=== PATIENT | female | born 1985 ===

== ENCOUNTER 2017-03-16 11:21 | Emergency (ER) | payer OTHER ==
--- NOTE | 2017-03-16 12:16 | C.PDOC ---
History Of Present Illness 31 year old female, who is currently around 18 weeks , presents to the ED for evaluation of fever, cough, and generalized body aches which began 3 days ago. Patient took one 325mg tablet of Tylenol yesterday without significant relief. She reports sick contact with son, who is also a patient in the ED with similar symptoms. Patient denies diarrhea, rash, and headache. Time Seen by Provider: 03/16/17 11:58 Chief Complaint (Nursing): Flu-like Symptoms History Per: Patient History/Exam Limitations: no limitations Onset/Duration Of Symptoms: Days (3) Current Symptoms Are (Timing): Still Present Location Of Pain: Diffuse Myalgias Sick Contacts (Context): Family Member(s) (son ) Associated Symptoms: Fever, Cough Ear Symptoms: Bilateral: None Additional History Per: Patient Past Medical History Reviewed: Historical Data, Nursing Documentation, Vital Signs Vital Signs: Last Vital Signs Temp 100.5 F H 03/16/17 13:31 Pulse 95 H 03/16/17 13:31 Resp 18 03/16/17 13:31 BP 91/62 L 03/16/17 13:31 Pulse Ox 96 03/16/17 13:31 - Medical History PMH: No Chronic Diseases Surgical History: No Surg Hx Family History: States: Unknown Family Hx - Social History Hx Alcohol Use: No Hx Substance Use: No - Immunization History Hx Tetanus Toxoid Vaccination: No Hx Influenza Vaccination: No Hx Pneumococcal Vaccination: No Review Of Systems Constitutional: Positive for: Fever Eyes: Negative for: Redness ENT: Positive for: Nose Congestion Respiratory: Positive for: Cough Gastrointestinal: Negative for: Vomiting, Diarrhea Genitourinary: Negative for: Dysuria, Vaginal Bleeding Musculoskeletal: Positive for: Other (generalized body aches ) Skin: Negative for: Rash Neurological: Negative for: Headache Physical Exam - Physical Exam Appears: Non-toxic, No Acute Distress Skin: Normal Color, Warm, Dry Head: Atraumatic, Normacephalic Eye(s): bilateral: Normal Inspection, EOMI Ear(s): Bilateral: Normal Nose: Normal, No Discharge Oral Mucosa: Moist Throat: Normal, No Erythema, No Exudate Neck: Normal ROM, Supple Chest: Symmetrical, No Tenderness Cardiovascular: Rhythm Regular, No Murmur Respiratory: Normal Breath Sounds, No Rales, No Rhonchi, No Wheezing Gastrointestinal/Abdominal: Soft (gravid), No Tenderness Extremity: Bilateral: Atraumatic, Normal Color And Temperature, Normal ROM Neurological/Psych: Oriented x3, Normal Speech Gait: Steady ED Course And Treatment O2 Sat by Pulse Oximetry: 99 (on RA ) Pulse Ox Interpretation: Normal Medical Decision Making Medical Decision Making: Patient with fever, cough, congestion, and flu like symptoms. Son is also in the ED being evaluated for Flu. Patient found to have temperature of 102.9 in the ED. Tylenol PO administered. On re-eval patient fever is down. She has clear lungs and in no distress. No abdominal complaints. Patient advised since she is she can take Tylenol for fever and use Claritin or saline for nasal congestion. follow up with primary doctor or clinic. Disposition Counseled Patient/Family Regarding: Diagnosis, Need For Followup, Rx Given - Disposition Disposition: HOME/ ROUTINE Disposition Time: 13:15 Condition: STABLE Additional Instructions: You have viral infection. Take Tylenol 650mg every 4-6 hours for Fever 100.4F or higher. Rest and drink plenty of fluids. May use cool mist humidifier or vaporizer in room. Try taking over the counter antihistamine (Claritin) for any congestion and saline spray. Follow up with your primary medical doctor or clinic in 1 week for further evaluation. Prescriptions: Sodium Chloride [[place] Saline] 50 ml NS DAILY #1 drops Instructions: Viral Syndrome (ED) Forms: [facility] ([place]ese) - POA Present On Arrival: None - Clinical Impression Clinical Impression: Influenza-like illness - PA / SENIOR SYSTEMS ADMINISTRATOR / Resident Statement MD/DO has reviewed & agrees with the documentation as recorded. - Scribe Statement The provider has reviewed the documentation as recorded by the Scribe (Lynn Madison) All medical record entries made by the Scribe were at my direction and personally dictated by me. I have reviewed the chart and agree that the record accurately reflects my personal performance of the history, physical exam, medical decision making, and the department course for this patient. I have also personally directed, reviewed, and agree with the discharge instructions and disposition.
[2017-03-16 13:32] VITALS: BP 91/62; PULSE 95; RESP 18; TEMP 100.5
[2017-03-16 14:17] VITALS: O2SAT 99
== END 2017-03-16 13:32 | disposition home or self-care (01) ==
LOC: C.ER 11:21
DX: J11.1 Influenza due to unidentified influenza virus with other respiratory manifestations (principal)

== ENCOUNTER 2017-03-21 11:22 | Emergency (ER) | payer OTHER, SELFPAY ==
[2017-03-21 11:41] VITALS: RESP 16; TEMP 98
--- NOTE | 2017-03-21 12:18 | C.PDOC ---
History Of Present Illness 31-year-old female, presents to the emergency department with complaints of 8 day duration of cough. Patient states she was seen in ER on 03/16 for fever, body aches and cough. Patients fever has resolved by cough persists, resulting in her coming to the ED for evaluation. Denies nausea/vomiting, vaginal bleeding , discharge, back pain, or any other associated symptoms. No other complaints at this time. Time Seen by Provider: 03/21/17 11:48 Chief Complaint (Nursing): Cough, Cold, Congestion History Per: Patient History/Exam Limitations: no limitations Onset/Duration Of Symptoms: Days Current Symptoms Are (Timing): Still Present Severity: Moderate Past Medical History Reviewed: Historical Data, Nursing Documentation, Vital Signs Vital Signs: Last Vital Signs Temp 98 F 03/21/17 11:36 Pulse 70 03/21/17 12:54 Resp 16 03/21/17 12:54 BP 114/75 03/21/17 12:54 Pulse Ox 100 03/21/17 13:30 Family History: States: No Known Family Hx - Social History Hx Alcohol Use: No Hx Substance Use: No - Immunization History Hx Tetanus Toxoid Vaccination: No Hx Influenza Vaccination: No Hx Pneumococcal Vaccination: No Review Of Systems Except As Marked, All Systems Reviewed And Found Negative. Constitutional: Positive for: Fever (now resolved), Malaise (now resolved) Cardiovascular: Negative for: Chest Pain Respiratory: Positive for: Cough. Negative for: Shortness of Breath Gastrointestinal: Negative for: Nausea, Vomiting, Abdominal Pain Genitourinary: Negative for: Vaginal Discharge, Vaginal Bleeding, Pelvic Pain Neurological: Negative for: Weakness Physical Exam - Physical Exam Appears: Non-toxic, No Acute Distress Skin: Warm, Dry, No Rash Head: Atraumatic, Normacephalic Eye(s): bilateral: Normal Inspection, PERRL, EOMI Ear(s): Bilateral: Normal Nose: Normal Oral Mucosa: Moist Lips: Normal Appearing Throat: No Erythema, No Exudate Neck: Normal ROM, Supple Chest: Symmetrical, No Tenderness Cardiovascular: Rhythm Regular, No Friction Rub, No Murmur Respiratory: Normal Breath Sounds, No Accessory Muscle Use, No Rales, No Rhonchi , No Stridor, No Wheezing Gastrointestinal/Abdominal: Normal Exam (Gravid uterus), Bowel Sounds, Soft, No Tenderness Back: Normal Inspection, No CVA Tenderness Extremity: Normal ROM Neurological/Psych: Oriented x3, Normal Speech, Normal Motor Gait: Steady ED Course And Treatment O2 Sat by Pulse Oximetry: 100 (on RA) Pulse Ox Interpretation: Normal Medical Decision Making Medical Decision Making: Notes and records from previous visits were reviewed. Patient seen in ED on for fever, body aches and cough. Disposition - Disposition Referrals: [facility] [Outside] Disposition: HOME/ ROUTINE Disposition Time: 12:50 Condition: GOOD Additional Instructions: Follow up with the medical doctor within 1-2 days. Return if worsened. Prescriptions: Loratadine [Claritin] 10 mg PO DAILY #10 tab Instructions: Upper Respiratory Infection (ED) Forms: [employer] (Georgian) - Clinical Impression Clinical Impression: Upper respiratory infection - Scribe Statement The provider has reviewed the documentation as recorded by the Scribe (An Rocha) All medical record entries made by the Scribe were at my direction and personally dictated by me. I have reviewed the chart and agree that the record accurately reflects my personal performance of the history, physical exam, medical decision making, and the department course for this patient. I have also personally directed, reviewed, and agree with the discharge instructions and disposition.
[2017-03-21 12:54] VITALS: BP 114/75; PULSE 70
[2017-03-21 13:29] VITALS: O2SAT 100
== END 2017-03-21 12:54 | disposition home or self-care (01) ==
LOC: C.ER 11:22
DX: J06.9 Acute upper respiratory infection, unspecified (principal)

== ENCOUNTER 2017-07-18 03:46 | Emergency (ER) | payer SELFPAY ==
--- NOTE | 2017-07-18 04:31 | OBDCSUM ---
Datetime: 07/18/2017 04:30 Discharged to, Provider: Home Follow up at, Provider: tus Follow up in weeks, Provider: cli ic Discharge Comment, Provider: dc home ptl gven po hy f/u in clinic on Discharge Diagnosis Prov Other: 36wwe nst_ro rom
--- NOTE | 2017-07-18 04:31 | OBHP ---
Datetime: 07/18/2017 04:27 IP Adm Impression: , intrauterine Admit Comment, IP Provider: at 36=weeka cane with c/o srom at 36 weeks , discharge coming, no v b, ctxs+fm obhx 1 x pmh de med pnv all nkda ps de soch de sse neg nitrazne, newg pooling ve closed a/p at 36.3weeks r/o rom dc home ptl gven po hy f/u in clinic on tuesdau Pelvic Type - PN: Adequate Extremities - PN: Normal Abdomen - PN: Normal Back - PN: Normal Breast - PN: Normal Lungs - PN: Normal Heart - PN: Normal Thyroid - PN: Normal Neurologic - PN: Normal HEENT - PN: Normal General - PN: Normal FHR - Baseline A Provider: 130 Contraction Comments Provider: mary anne EGA AdmitDate IP: 36.3 Vital Signs Provider: Reviewed; Within Normal Limits IP Chief Complaint: Suspected ruptured membranes NICHD Variability Prov Fetus A: Moderate 6-25bpm NICHD Accel Fetus A IP Provider: 15X15 FHR Category Provider Fetus A: Category I Dilatation, Provider: 0 Effacement, Provider: 0 Station, Provider: -3 Genitourinary Exam: Normal DTRs - PN: Normal
[2017-07-18 09:01] VITALS: BP 106/86; PULSE 100; RESP 20; TEMP 98.1; O2SAT 98
== END 2017-07-18 04:55 | disposition home or self-care (01) ==
LOC: C.EROB 03:46
DX: O47.03 False labor before 37 completed weeks of gestation, third trimester (principal); Z3A.36 36 weeks gestation of pregnancy

== ENCOUNTER 2017-07-19 12:39 | Inpatient (IN) | payer MEDICAID ==
[2017-07-19] MEDS ORDERED: Penicillin G 5 Million Unit Vial IVPB ONE ×2 (13:30→13:54)
[2017-07-19] MEDS ORDERED: Lactated Ringer's 1,000 ML IV SCH (13:30)
[2017-07-19 13:55] LABS: BASO # 0.1 K/uL (0.0-0.2); BASO % 0.5 % (0.0-2.0); EOS # 0.1 K/uL (0.0-0.7); EOS % 0.7 % (0.0-4.0); HEMOGLOBIN 13.3 g/dL (11.0-16.0); LYMPH # 2.1 K/uL (1.0-4.3); LYMPH % 21.5 % (20.0-40.0); MEAN CELL VOLUME 82.2 fL (81.0-99.0); MEAN CORPUSCULAR HEMOGLOBIN 28.6 pg (27.0-31.0); MEAN CORPUSCULAR HGB CONC 34.8 g/dL (33.0-37.0); MEAN PLATELET VOLUME 8.8 fL (7.2-11.7); MONO # 0.8 K/uL (0.0-0.8); MONO % 7.9 % (0.0-10.0); NEUT # 6.9 K/uL (1.8-7.0); NEUT % 69.4 % (50.0-75.0); NRBC % 0.2 % (0.0-2.0); RBC 4.65 Mil/uL (3.80-5.20); RED CELL DISTRIBUTION WIDTH 17.9 % (11.5-14.5); WHITE BLOOD COUNT 9.9 K/uL (4.8-10.8)
[2017-07-19 14:08] LABS: ALBUMIN 3.5 g/dL (3.5-5.0); ALT/SGPT 30 U/L (9-52); AST/SGOT 24 U/L (14-36); BLOOD UREA NITROGEN 5 mg/dL (7-17); CALCIUM 9.5 mg/dl (8.6-10.4); GFR AFRICAN-AMERICAN > 60; GFR NON-AFRICAN AMERICAN > 60
[2017-07-19 14:10] LABS: SQUAMOUS EPITHIAL 1 /hpf (0-5); URINE BACTERIA OCC (<OCC); URINE BILIRUBIN NEGATIVE (NEGATIVE); URINE BLOOD NEGATIVE (NEGATIVE); URINE CLARITY Clear (Clear); URINE COLOR Straw (YELLOW); URINE GLUCOSE (UA) NORMAL (Normal); URINE LEUKOCYTE ESTERASE NEG Leu/uL (Negative); URINE PROTEIN NEGATIVE (NEGATIVE); URINE UROBILINOGEN NORMAL mg/dL (0.2-1.0)
[2017-07-19] MEDS ORDERED: Fentanyl/Bupivacaine HCl 250 ML EPI ONE ×2 (20:46→20:51)
[2017-07-19] MEDS ORDERED: Lidocaine Hydrochloride 5 ML INJ ONE (20:57)
--- NOTE | 2017-07-19 23:32 | OBADHP ---
Datetime: 07/19/2017 13:24 IP Admit Plan Other: cervical ripening. Admit Comment, IP Provider: Patient is a 31 year old at 36w5d EDIE 08/11/17 presents to L+D [facility] clinic for suspected ruptured membranes. Patient was seen on Monday evening for suspected rupt ure of membranes, Nitrazine and pooling were negative. Patient states that on Monday she felt a mode rate gush of fluid and then small leaking of fluid. She went to clinic today, states that Nitrazine w as positive so she was sent to L+D to be evaluated. She endorses +FM, denies CTX, VB. Issues: Denies OB Hx: 1. 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 Category 1 tracin g. -Admit to unit -CEFM and TOCO -Admission labs: CBC, CMP, UA, T+S -LR @ 125cc/hr -GBS Positive: Pen G 5 MU x 1, Pen G 2.5 MU q4H until delivery -Diet: NPO -Cervidil for cervical rippening -Anesthesia on consult for pain control -Anticipate vaginal delivery -Plan discussed with Dr Eriberto Coffey DO PGY-1 Attending Note: patient seen by me with the Resident. I agree with the documentaiotn of events as described above. Patient is clinically stable. Addendum 1438 hours - cervidil placed in posterior vaginal vault at 1435 hours. FHR 135 bpm: (+) Accels; (-) decels; (+) moderate variability [place]: mild occasional contractions (patent reports pain scale 2/10) A/P: 31 y.o P1011, 36w 5d, PPROM, GBS (+). Category 1 tracing. Clinically stable - as above. Contraction Comments Provider: occasional Comments, ACOG Physical Exam: VS: 124/97 93 Gen: AAOx3 Abd: Soft, gravid. Fundal height 35 cm Ext: No clubbing, cyanosis, edema SSE: +nitrazine SVE: 1-2/40/-2 Pool Provider: Negative Nitrazine Provider: Positive IP Hx Assessment: The History has been Reviewed and is Current Vital Signs Provider: Reviewed; Within Normal Limits IP Chief Complaint: Suspected ruptured membranes FHR Category Provider Fetus A: Category I Dilatation, Provider: 1-2 Effacement, Provider: 40 Station, Provider: -2 EGA AdmitDate IP: 36.5 IP Adm Impression: , intrauterine ; Ruptured Membranes IP Admit Plan: Admit to unit; Initiate labor protocol Datetime: 07/18/2017 04:27 Pelvic Type - PN: Adequate Extremities - PN: Normal Abdomen - PN: Normal Back - PN: Normal Breast - PN: Normal Lungs - PN: Normal Heart - PN: Normal Thyroid - PN: Normal Neurologic - PN: Normal HEENT - PN: Normal General - PN: Normal FHR - Baseline A Provider: 130 NICHD Variability Prov Fetus A: Moderate 6-25bpm NICHD Accel Fetus A IP Provider: 15X15 Genitourinary Exam: Normal DTRs - PN: Normal
--- NOTE | 2017-07-20 04:39 | OBDS ---
DELIVERY PERSONNEL Delivery Doctor: Liang Wei MD Commission Specialist: Sammie Rizzo RN Anesthesiologist: Dionna Glez MD Resident: Dr. Coffey MATERNAL INFORMATION Delivery Anesthesia: Epidural Medications in Delivery: LR with 20 units Pitocin Estimated Blood Loss (ml): 200 Placenta Cultured: No Maternal Complications: None RN Comments: Delivered a live baby boy via with an score of 1min-9; 5min.=9 Provider Comments: This G3 now P1112 delivered a viable male via over intact perineum. T he infant's head was delivered in a controlled manner. Loose nuchal x 1 was reduced. The infant's amanda ulders and body was delivered atraumatically and without difficulty. Infant's mouth and nose were suc tioned with bulb syringe. Infant was placed on mothers abdomen. The cord was clamped and cut. Cord ga ses and cord blood were collected. An intact placenta with a 3VC was delivered. EBL 200cc. The weighed 5lbs 10oz with APGARS 9 and 9. Mom and baby are recovering in stable condition. All sponge c ounts were correct. Dr Wei present for entire delivery. Andie Coffey PGY-1 Attending Note: Present at and participated in the delivery as described above. I agree with the elizabeth hendricks. LABOR SUMMARY EDC: 08/11/2017 00:00 No. Babies in Womb: 1 Attempted: No Labor Anesthesia: Epidural LABOR INFORMATION Reason for Induction: Premature Rupture of Membranes Onset of Labor: 07/18/2017 06:00 Complete Dilatation: 07/20/2017 01:08 Cervical Ripening Agents: Cervidil Oxytocin: Induction Group B Beta Strep: Positive Antibiotics # of Doses: 4 Antibiotics Time of Last Dose: 1:03 Steroids Given: None Reason Steroids Not Administered: Not Applicable MEMBRANES Membranes Rupture Method: Spontaneous Rupture of Membranes: 07/18/2017 06:00 Length of Rupture (hrs): 46.22 Amniotic Fluid Color: Clear Amniotic Fluid Amount: Small Amniotic Fluid Odor: Normal STAGES OF LABOR Stage 1 hrs: 43 Stage 1 min: 8 Stage 2 hrs: 3 Stage 2 min: 5 Stage 3 hrs: 0 Stage 3 min: 5 Total Time in Labor hrs: 46 Total Time in Labor min: 18 VAGINAL DELIVERY Episiotomy: None Laceration Extension: N/A Laceration Type: None Initial Vag Sponge Count: 10+1Lap Final Vag Sponge Count: 10+1Lap Initial Vag Sharps Count: 0 Final Vag Sharps Count: 0 Sponge Count Correct: Yes; Vaginal Sweep Performed Sharps Count Correct: N/A BABY A INFORMATION Delivery Date/Time: 07/20/2017 04:13 Method of Delivery: Vaginal Born in Route : No : N/A Forceps: N/A Vacuum Extraction: N/A Shoulder Dystocia : No SHOULDER DYSTOCIA BABY A Delivery Date/Time: 07/20/2017 04:13 PRESENTATION/POSITION BABY A Presentation: Cephalic Cephalic Presentation: Vertex Vertex Position: Right Occipital Anterior Breech Presentation: N/A PLACENTA INFORMATION BABY A Placenta Delivery Time : 07/20/2017 04:18 Placenta Method of Delivery: Spontaneous Placenta Status: Delivered SCORES BABY A Heart Rate 1 min: >100 bpm Resp Effort 1 min: Good Cry Reflex Irritability 1 min: Cough or Sneeze or Pulls Away Muscle Tone 1 min: Active Motion Color 1 min: Body [place], Extremities Blue SCORE 1 MIN: 9 Heart Rate 5 min: >100 bpm Resp Effort 5 min: Good Cry Reflex Irritability 5 min: Cough or Sneeze or Pulls Away Muscle Tone 5 min: Active Motion Color 5 min: Body [place], Extremities Blue SCORE 5 MIN: 9 INFORMATION BABY A Gestational Age at Delivery: 36.6 Gestational Status: Outcome : Liveborn Infant Condition : Stable Infant Sex: Male IDENTIFICATION/MEDS BABY A ID Band Number: [id number] Sensor Number: [id number] WEIGHT/LENGTH BABY A Birthweight (gms): 2555 Infant Weight (lb): 5 Weight (oz): 10 Infant Length Inches: 18.00 Length cms: 45.7 CORD INFORMATION BABY A No. Cord Vessels: 3 Nuchal Cord : Around Neck x1, Loose Cord Blood Taken: Yes Infant Suction: None ASSESSMENT BABY A Complications: None Physical Findings at Delivery: Caput Succedaneum Infant Respirations: Appears Normal Director Of Product Management/ALS Called : No Infant Care By: Dr. Breaux Transferred To: Remains with Mother IDENTIFICATION/MEDS BABY B ID Band Number : [id number] Sensor Number : [id number]
[2017-07-20] MEDS ORDERED: Oxycodone/Acetaminophen 5/325 mg Tab PO PRN (07:08)
[2017-07-20] MEDS ORDERED: Benzocaine/Menthol 20%-0.5% Topical Spray (60 ml) TOP PRN (07:08)
[2017-07-21 07:55] LABS: HEMOGLOBIN 12.9 g/dL (11.0-16.0); MEAN CELL VOLUME 83.1 fL (81.0-99.0); MEAN CORPUSCULAR HEMOGLOBIN 28.3 pg (27.0-31.0); MEAN PLATELET VOLUME 8.3 fL (7.2-11.7); RBC 4.56 Mil/uL (3.80-5.20); RED CELL DISTRIBUTION WIDTH 18.5 % (11.5-14.5); WHITE BLOOD COUNT 12.8 K/uL (4.8-10.8)
--- NOTE | 2017-07-21 12:55 | OBPPN ---
Datetime: 07/21/2017 07:50 PP Pain Prov: Within normal limits PP Nausea Prov: Denies PP Flatus Prov: Yes PP BM Prov: Yes PP Impression Prov: Normal progression PP Plan Prov: Continue present management PP Progress Note Prov: Patient seen and examined at bedside. Per nursing no acute events overnight. Patient is doing well, states that she feels abdominal cramping, back pain and shoulder pain. Lochia is mild. She is ambulating and tolerating diet. Urinating without difficulty. Passing flatus and BM. Breast and bottle feeding. VS: 113/67 90 98.0 Gen: AAOx3 CV: RRR Lungs: CTA B/L Abd: Soft, fundus firm 1 fingerbreath below umbilicus Ext: No clubbing, cyanosis, edema; no calf tenderness Labs: 9.9>13.3/38.2<222 F/U am CBC O positive Rubella immune A/P: 31 year old s/p at 36w 6d, PPD#1 -Stable, afebrile -Pain control: Motrin prn -F/U am CBC -Encourage ambulation and hydration -Encourage breast feeding -Continue routine care -Male : declined circ -Anticipate D/C home tomorrow -Plan discussed with Dr Eriberto Coffey DO PGY-1 Attending Note: Patient seen and evaluated by me with the Resident during rounds. I agree with the above as documented. Vital Signs Provider PP: Reviewed; Within Normal Limits
[2017-07-21 15:54] VITALS: TEMP 97.2
[2017-07-22 00:11] VITALS: RESP 20
[2017-07-22 07:53] VITALS: BP 107/75; PULSE 92; O2SAT 97
--- NOTE | 2017-07-22 08:15 | OBDCSUM ---
Datetime: 07/22/2017 08:06 Discharged to, Provider: Home Follow up at, Provider: 6 weeks PP Disch Instr Activity: Normal activity Disch Instr Diet: Regular Discharge Instructions, Provider: Routine instructions given Discharge Diagnosis, Provider: Labor Discharge Time: 07/22/2017 08:06 Disch Referrals: None Contraception discussed, Prov: Yes Disch Activity Restrictions: No exercising; No lifting; No driving Discharge Comment, Provider: pt doing well. tolerating PO diet, +flatus, +BM, well. am bulating. PE: fundus firm, Ext: no edema. A/P: PPD#2 labor. Discharge Diagnosis Prov Other: 36 08/03
--- NOTE | 2017-07-24 21:20 | OBHP ---
Datetime: 07/19/2017 13:24 IP Adm Impression: , intrauterine ; Ruptured Membranes IP Admit Plan: Admit to unit; Initiate labor protocol IP Admit Plan Other: cervical ripening. Admit Comment, IP Provider: Patient is a 31 year old at 36w5d EDIE 08/11/17 presents to L+D [facility] clinic for suspected ruptured membranes. Patient was seen on Monday evening for suspected rupt ure of membranes, Nitrazine and pooling were negative. Patient states that on Monday she felt a mode rate gush of fluid and then small leaking of fluid. She went to clinic today, states that Nitrazine w as positive so she was sent to L+D to be evaluated. She endorses +FM, denies CTX, VB. Issues: Denies OB Hx: 1. 2009 at term, 2.5kg, Maru, no complications 2. SAB COUNTER WAITRESS/WAITER Hx: LMP 11/05/16 [facility] 14 x regular x 4 days Denies history of fibroids, ovarian cysts, STIs Denies history of abnormal pap smears Allergies: NKDA Medications: PNV, Multivitamins, Iron Medical History: Denies Surgical History: Denies Social History: Denies alcohol, tobacco, drug use; , lives with spouse and child Family History: Mother - healthy; Father - healthy; denies history of cancer PE: See above A/P: 31 year old at 36w5d presents with prolonged rupture of membranes. Category 1 tracin g. -Admit to unit -CEFM and TOCO -Admission labs: CBC, CMP, UA, T+S -LR @ 125cc/hr -GBS Positive: Pen G 5 MU x 1, Pen G 2.5 MU q4H until delivery -Diet: NPO -Cervidil for cervical rippening -Anesthesia on consult for pain control -Anticipate vaginal delivery -Plan discussed with Dr Eriberto Coffey DO PGY-1 Attending Note: patient seen by me with the Resident. I agree with the documentaiotn of events as described above. Patient is clinically stable. Addendum 1438 hours - cervidil placed in posterior vaginal vault at 1435 hours. FHR 135 bpm: (+) Accels; (-) decels; (+) moderate variability [place]: mild occasional contractions (patent reports pain scale 2/10) A/P: 31 y.o P1011, 36w 5d, PPROM, GBS (+). Category 1 tracing. Clinically stable - as above. Contraction Comments Provider: occasional Comments, ACOG Physical Exam: VS: 124/97 93 Gen: AAOx3 Abd: Soft, gravid. Fundal height 35 cm Ext: No clubbing, cyanosis, edema SSE: +nitrazine SVE: 1-2/40/-2 Pool Provider: Negative Nitrazine Provider: Positive IP Hx Assessment: The History has been Reviewed and is Current EGA AdmitDate IP: 36.5 Vital Signs Provider: Reviewed; Within Normal Limits IP Chief Complaint: Suspected ruptured membranes FHR Category Provider Fetus A: Category I Dilatation, Provider: 1-2 Effacement, Provider: 40 Station, Provider: -2
== END 2017-07-22 12:35 | disposition home or self-care (01) | DRG 775 ==
LOC: C.EROB 12:39 → C.4D 13:28 → C.4M 07-20 07:53
PROVIDERS: ADMIT Obstetrics & Gynecology; ATTEND Obstetrics & Gynecology
PROC: 10E0XZZ Delivery of Products of Conception, External Approach (ICD-10-PCS; principal; 2017-07-20)
PROC: 3E0P7VZ Introduction of Hormone into Female Reproductive, Via Natural or Artificial Opening (ICD-10-PCS; 2017-07-20)
DX: O60.14X0 Preterm labor third trimester with preterm delivery third trimester, not applicable or unspecified (principal); O42.113 Preterm premature rupture of membranes, onset of labor more than 24 hours following rupture, third trimester; O99.824 Streptococcus B carrier state complicating childbirth; O69.81X0 Labor and delivery complicated by cord around neck, without compression, not applicable or unspecified; Z3A.36 36 weeks gestation of pregnancy; Z37.0 Single live birth